=== PATIENT | male | born 1965 | race Caucasian/White ===

== ENCOUNTER 2020-11-19 19:20 | Emergency (ER) | payer OTHER, SELFPAY ==
[2020-11-19 19:27] VITALS: BP 140/85; PULSE 74; RESP 16; TEMP 35.9; O2SAT 98
--- NOTE | 2020-11-19 19:37 | ED.URI ---
HPI - URI/Sore Throat General Chief Complaint: Upper Respiratory Infection Stated Complaint: sore throat Time Seen by Provider: 11/19/20 19:37 Source: patient and RN notes reviewed Mode of arrival: ambulatory Limitations: no limitations History of Present Illness HPI Narrative: 55 year old male who presents to [facility] care with complaints of possible strep throat. Patient states that has symptoms and was started on antibiotic today for tonsillitis and he wants to be checked because he is usually asymptomatic if he gets strep. Patient has a lot of nasal drainage, denies any sore throat, ear pain or any cough at this time. He denies any known fevers chill or sweats, does state history of seasonal allergies and is taking Zyrtec daily MD elicited complaint: other (concern of possible strep) Pertinent past history: other (previous strep without symptoms, bronchitis) Onset (ago): day(s) (1) Description of mucous: clear Able to tolerate fluids by mouth: Yes Context: sick contacts Associated symptoms: rhinorrhea and nasal congestion Treatments prior to arrival: other (zyrtec) Related Data Home Medications Medication Instructions Recorded Confirmed atorvastatin 80 mg PO DAILY 06/16/19 Allergies Allergy/AdvReac Type Severity Reaction Status Date / Time No Known Allergies Allergy Verified 11/19/20 20:03 Review of Systems Review of Systems: Narrative: CONSTITUTIONAL: Denies fever, chills, or sweats. EYES: Denies visual changes, redness, or discharge. ENT:Positive rhinorrhea, congestion,no present sore throat, or otalgia. CARDIOVASCULAR: Denies chest pain, palpitations, or edema. RESPIRATORY: Denies cough or dyspnea. GASTROINTESTINAL: Denies abdominal pain, nausea, vomiting, or diarrhea. GENITOURINARY: Denies dysuria or hematuria. SKIN: Denies rash or itching. MUSCULOSKELETAL: Denies back pain, joint pain, or myalgia. NEUROLOGIC: Denies headache, numbness, or weakness. PSYCHIATRIC: Denies anxiety or depression. All systems reviewed & are unremarkable except as noted in HPI and below PMFSH Past Medical History Medical History (Updated 11/20/20 @ 00:00 by Yusuf Dafaviola) Elevated cholesterol Seasonal allergies Surgical History Surgical History (Updated 11/22/20 @ 12:24 by Dariela Bhandrai NP) No history of previous surgery Family History Family History (Updated 11/22/20 @ 12:20 by Dariela Bhandari NP) Other No significant family history Social History Social History (Updated 11/22/20 @ 12:15 by Dariela Bhandari NP) Smoking status: Never smoker Alcohol intake: current Alcohol use details: social Substance use: never Living arrangements: with family Gender identity (if verbalized by the patient): Male Comments At time of signature, agree with nursing past medical, surgical, social and family history. There is no relevant family history pertinent to the presenting complaint Exam Narrative: Exam Narrative: GENERAL: Well-appearing, well-nourished, and in no acute distress. HEAD: Normocephalic, atraumatic. EYES: PERRLA and EOMI. ENT: Nares light red, clear rhinorrhea no epistaxis . Mucous membranes moist.TM's normal with good light reflex, throat red with no lesions or exudate no tonsil enlargement uvula midline, post nasal drainage noted to back of throat. NECK: Supple.no lymphadenopathy CHEST: Clear to auscultation. No respiratory distress.SAO2 98% on room air no dyspnea noted HEART: Regular rate and rhythm. No murmur heard. Normal peripheral pulses. ABDOMEN: Soft, nontender, nondistended, normal active bowel sounds. EXTREMITIES: Normal range of motion. No edema. SKIN: Warm, dry, no rash. NEURO: No focal deficits. Alert and oriented x3. Course Vital Signs Vital signs: Vital Signs Temperature 35.9 C L 11/19/20 19:27 Pulse Rate 74 11/19/20 19:27 Respiratory Rate 16 11/19/20 19:27 Blood Pressure 140/85 11/19/20 19:27 Pulse Oximetry 98 11/19/20 19:27 [place]
== END 2020-11-19 20:00 | disposition home or self-care (01) ==
PROVIDERS: Emergency Provider Registered Nurse; PCP Family Medicine
DX: J02.9 Acute pharyngitis, unspecified (principal); E78.00 Pure hypercholesterolemia, unspecified
CPT/HCPCS: 87081; 87880; 99213; G0463

== ENCOUNTER 2023-01-12 08:07 | Emergency (ER) | payer OTHER, SELFPAY ==
[2023-01-12 08:20] VITALS: BP 134/88; PULSE 73; RESP 20; TEMP 36.8; O2SAT 98
--- NOTE | 2023-01-12 08:23 | ED.URI ---
HPI - URI/Sore Throat General Chief Complaint: Upper Respiratory Infection Stated Complaint: Cough Time Seen by Provider: 01/12/23 08:23 Source: patient Mode of arrival: ambulatory Limitations: no limitations History of Present Illness HPI Narrative: 57-year-old male presents with complaint of runny nose, postnasal drainage for the past 5 days. States that he relates that to seasonal allergies. Is taking Zyrtec and Flonase daily. Reports coughing only at night. Overall he states he is feeling well. Does not feel that this is a virus. States symptoms just not improving and cannot stop coughing at night. Has not tried cough suppressant. Afebrile. No chest pain or shortness breath. All systems reviewed and negative except as noted above. Related Data Home Medications Medication Instructions Recorded Confirmed rosuvastatin 40 mg tablet 40 mg PO DAILY 01/12/23 01/12/23 Allergies Allergy/AdvReac Type Severity Reaction Status Date / Time No Known Allergies Allergy Verified 01/12/23 08:13 Review of Systems Review of Systems: CONSTITUTIONAL: Denies fever, chills, or sweats. EYES: Denies visual changes, redness, or discharge. ENT: Reports rhinorrhea, congestion, postnasal drainage. Denies sore throat, or otalgia. CARDIOVASCULAR: Denies chest pain, palpitations, or edema. RESPIRATORY: reports cough. Denies dyspnea. GASTROINTESTINAL: Denies abdominal pain, nausea, vomiting, or diarrhea. GENITOURINARY: Denies dysuria or hematuria. SKIN: Denies rash or itching. MUSCULOSKELETAL: Denies back pain, joint pain, or myalgia. NEUROLOGIC: Denies headache, numbness, or weakness. PSYCHIATRIC: Denies anxiety or depression. All other systems reviewed are negative, except as documented in HPI. [facility] Past Medical History Medical History (Updated 01/12/23 @ 08:32 by Lela Calderón NP) Elevated cholesterol Seasonal allergies Surgical History Surgical History (Updated 11/22/20 @ 12:24 by Dariela Bhandari NP) No history of previous surgery Family History Family History (Updated 11/22/20 @ 12:20 by Dariela Bhandari NP) Other No significant family history Social History Social History (Updated 11/22/20 @ 12:15 by Dariela Bhandari NP) Smoking status: Never smoker Alcohol intake: current Alcohol use details: social Substance use: never Living arrangements: with family Gender identity (if verbalized by the patient): Male Comments At time of signature, agree with nursing past medical, surgical, social and family history. There is no relevant family history pertinent to the presenting complaint. Exam Narrative: GENERAL: This is a well-nourished, well-developed patient, in no apparent distress. HEAD: normocephalic, atraumatic. EYES: PERRL. Sclera clear/white. Vision is grossly intact. EARS: External ears normal, auditory canals clear and without drainage, TMs normal without perforation. Hearing grossly intact. NOSE: External nose normal with clear nasal drainage with mild erythema to bilateral nares. THROAT: Mucous membranes moist, Moderate amount of postnasal drainage. NECK: Neck supple, non-tender without lymphadenopathy, masses or thyromegaly. CARDIOVASCULAR: Regular rate and rhythm without murmurs, gallops, or rubs. RESPIRATORY: Clear to auscultation. Breath sounds equal bilaterally. No wheezes, rales, or rhonchi. SKIN: warm, Dry, intact with no suspicious lesions or rash, good texture and turgor. NEURO: awake, alert, and oriented to person, place and time. There were no obvious focal neurologic abnormalities. EXTREMITIES: No joint tenderness, effusion, or edema noted. Course Course Level of Care: Express Care Visit Vital Signs Vital signs: Vital Signs Temperature 36.8 C 01/12/23 08:20 Pulse Rate 73 01/12/23 08:20 Respiratory Rate 20 01/12/23 08:20 Blood Pressure 134/88 01/12/23 08:20 Pulse Oximetry 98 01/12/23 08:20 Oxygen Delivery Room Air
== END 2023-01-12 08:35 | disposition home or self-care (01) ==
PROVIDERS: Emergency Provider Nurse Practitioner Family; PCP Physician Assistant Medical
DX: J30.9 Allergic rhinitis, unspecified (principal); E78.00 Pure hypercholesterolemia, unspecified
CPT/HCPCS: 99213; G0463